=== PATIENT | female | born 1945 | race Caucasian/White ===

== ENCOUNTER 2017-02-10 13:16 | Day surgery (SDC) | payer OTHER ==
[~2017-02-10] VITALS: Ht 152.4 cm; Wt 72.6 kg
[2017-02-10] MEDS ORDERED: POLYMYXIN 500,000/BACIT.10,000 UNITS in NS IRR 1 L IR ONE (15:46)
--- NOTE | 2017-02-10 18:03 | NUR ---
notes- recieved pt from recovery awake, alert and oriented. s/p orif on the left ankle. pain controlled at this time. pt is under spinal anesthesia, pt is not ab;e to move toes on the left. elevated left leg with pillow. oriented to call light use. vital signs stable. family at bedside. will monitor.
[2017-02-10 18:08] VITALS: BP_SYST 111
--- NOTE | 2017-02-10 18:37 | NUR ---
SPOKE TO DR. SIDDIQUI COVERING FOR DR. MAS RE; PAIN MEDS. NEW ORDERS RECEIVED.
[2017-02-10] MEDS ORDERED: CEL20 PO (18:39)
[2017-02-10] MEDS ORDERED: ARI1 PO (18:39)
[2017-02-10] MEDS ORDERED: PRAV40TA PO (18:39)
[2017-02-10] MEDS ORDERED: HYDROcodone/ACETAMIN 5-325 MG TAB (NORCO/ VICODIN) PO PRN (18:45)
[2017-02-10 19:00] VITALS: BP_SYST 115
--- NOTE | 2017-02-10 19:00 | NUR ---
OPENING NOTE Received bedside report from [facility] OCNNIE Gracia. Patient is currently awake/alert/oriented with her family members by her side. Noted IV to Right hand 20g saline lock. Dressing site is clean/dry/intact with no signs of redness, inflammation or infiltration. (1) SCD foot pump applied and properly functioning. Introduced myself, updated her whiteboard, and oriented patient to room. Bed to lowest position, 3 rails are up, bed alarm activated, call light within reach. Will continue to monitor patient. Addendum: 02/10/17 at 2255 by Kristen Ram RN 115/55 73 16 97% 97.4 complaint of 710 pain.
[2017-02-10] MEDS: HYDROmorphone 2 MG/ML VIAL IVP PRN ×2 (19:25→23:49)
--- NOTE | 2017-02-10 19:29 | NUR ---
notes- complain of severe pain, medicated with dilaudid as ordered. needs attended. will endorse
[2017-02-10] MEDS: HYDROcodone/ACETAMIN 5-325 MG TAB (NORCO/ VICODIN) PO PRN (20:57)
--- NOTE | 2017-02-10 20:58 | NUR ---
PAIN MEDICATION Patient complains of 7/10 aching/sharp pain to left ankle. Administered [place] 5mg/325mg (2 tabs) as ordered by physician for severe pain. Will follow up to ensure effective pain management.
--- NOTE | 2017-02-10 23:49 | NUR ---
PAIN MEDICATION Patient complains of 10/10 aching/sharp pain to left ankle. 125/656 76 15 96% Dilaudid 0.5mg/0.25ml as ordered by physician for severe pain. Will follow up to ensure effective pain management.
[2017-02-11 01:38] VITALS: BP_SYST 121
--- NOTE | 2017-02-11 01:48 | NUR ---
ROUNDS Patient is currently sleeping. Equal rise and fall of chest with non-labored respirations at 17. IV to Right hand 20g saline lock. Dressing site is clean/dry/intact with no signs of redness, inflammation or infiltration. (1) SCD foot pump applied and properly functioning. Fall precautions implemented. Bed to lowest position, 3 rails are up, bed alarm activated, call light within reach. Will continue to monitor patient.
[2017-02-11] MEDS: HYDROcodone/ACETAMIN 5-325 MG TAB (NORCO/ VICODIN) PO PRN ×2 (03:12→10:39)
--- NOTE | 2017-02-11 03:12 | NUR ---
PAIN MEDICATION Patient complains of 7/10 aching/sharp pain to left ankle. Administered [place] 5mg/325mg (2 tabs) as ordered by physician for severe pain. Will follow up to ensure effective pain management.
[2017-02-11] MEDS: HYDROmorphone 2 MG/ML VIAL IVP PRN ×2 (05:41→08:24)
--- NOTE | 2017-02-11 05:41 | NUR ---
PAIN MEDICATION Patient complains of 8/10 aching/sharp pain to left ankle. 129/65 75 15 97% Dilaudid 0.5mg/0.25ml as ordered by physician for severe pain. Will follow up to ensure effective pain management.
--- NOTE | 2017-02-11 07:00 | NUR ---
CLOSING NOTE Gave SBAR report to dayshift nurse Latisha. Patient is currently sleeping, no distress. All needs/expectations met by night supervisor. Bed to lowest position and locked, 3 rails are up, call light within reach, bed alarm activated. Fall precautions upheld/implemented. Transfer of care successful.
--- NOTE | 2017-02-11 08:10 | NUR ---
Nutrition Update Chandan Scale 15 noted. Pt admitted for fracture of shaft of L fibula Diet: regular diet BMI: 31.2 kg/m2 RD to follow per nutrition care standards.
[2017-02-11 08:25] VITALS: BP_SYST 140
[2017-02-11 08:30] VITALS: BP_SYST 114
--- NOTE | 2017-02-11 08:30 | NUR ---
INITIAL ROUNDS Received pt AAOx4, no s/s resp distress, c/o pain 09/22-pt just given pain medication. Noted LLE with solange wrap dressing clean, dry and intact. Plan of care for the day reviewed with pt-pt verbalized her understanding-pt just wants to be discharged. Pain management, skin and safety discussed-teach back done. Call light within reach.
--- NOTE | 2017-02-11 10:18 | NUR ---
PAGED PAGED [facility] MEREDITH CALLED AT [phone] SPOKE WITH TRAINS DISPATCHER SUPERVISOR.
[2017-02-11 10:47] VITALS: BP_SYST 114
[2017-02-11] MEDS ORDERED: HYDR-3924 PO (10:59)
--- NOTE | 2017-02-11 11:35 | NUR ---
PT DISCHARGED HOME Pt given medication reconciliation form and D/C instructions. Exit Care on post-op care for ORIF tibia/fibula explained & provided. Pt verbalized her understanding. Pt in stable condition, ID band removed. IV catheter removed, intact and dressing applied, no active bleeding. Pt's LLE in splint with solange bandage dressing clean, dry and intact. Pt educated on pain management. All belongings sent with pt. Pt left floor via wheelcahir to private vehicle in no distress.
== END 2017-02-11 11:35 | disposition home or self-care (01) ==
LOC: SDS 13:16 → SMU 13:23 → STU 18:28 → SDS 19:03 → UNDOADMOB 19:04 → SMU 19:04 → UNDODISOB 02-11 11:35
PROVIDERS: ATTEND Orthopaedic Surgery
DX: S82.302A Unspecified fracture of lower end of left tibia, initial encounter for closed fracture (principal); S82.402A Unspecified fracture of shaft of left fibula, initial encounter for closed fracture; W18.39XA Other fall on same level, initial encounter; Y93.9 Activity, unspecified; Y92.89 Other specified places as the place of occurrence of the external cause; Y99.9 Unspecified external cause status; Z80.3 Family history of malignant neoplasm of breast; E78.5 Hyperlipidemia, unspecified
CPT/HCPCS: 27758; 76000; C1713; J1170 ×2; J7120; G0378